=== PATIENT | male | born 1960 | race Caucasian/White ===

== ENCOUNTER → 2023-07-05 11:01 | Outpatient (REF) | payer OTHER, SELFPAY | LOC: HWRAD 11:01 | PROVIDERS: ATTENDING PHYSICIAN Nurse Practitioner Family | DX: M79.671 Pain in right foot (principal) | CPT/HCPCS: 73630 ==

== ENCOUNTER → 2023-11-13 12:27 | Outpatient (REF) | payer OTHER, SELFPAY ==
[2023-11-13 15:50] LABS: % Basophils 0.8 % (0-2); % Eosinophils 6.9 % (0-6); % Immature Granulocytes 0.2 % (0-0.5); % Lymphocytes 13.9 % (20.5-51.1); % Monocytes 8.3 % (1.7-9.3); % Neutrophils 69.9 % (42.2-75.2); Absolute Basophils 0.1 10^3/uL (0-0.2); Absolute Eosinophils 0.7 10^3/uL (0-0.7); Absolute Lymphocytes 1.4 10^3/uL (1.2-3.4); Absolute Monocytes 0.8 10^3/uL (0.1-0.6); Absolute Neutrophils 6.8 10^3/uL (1.4-6.5); Hematocrit 37.7 % (39.0-52.0); Hemoglobin 12.9 g/dL (13.0-18.0); Mean Corp Hgb Conc. 34.2 g/dL (33.0-37.0); Mean Corpuscular Hgb 31.7 pg (27.0-31.0); Mean Corpuscular Volume 92.6 fL (80.0-94.0); Mean Platelet Volume 10.6 fL (7.4-10.4); Nucleated Red Blood Cells % 0 % (-); Platelet Count 259 10^3/uL (130-400); Red Blood Cell Count 4.07 10^6/uL (4.70-6.10); Red Cell Dist. Width 12.2 % (11.5-14.5); White Blood Cell Count 9.8 10^3/uL (4.8-10.8)
[2023-11-13 16:11] LABS: Uric Acid 5.3 mg/dl (3.5-8.5)
== END ==
LOC: HWRAD 12:27
PROVIDERS: ATTENDING PHYSICIAN Family Medicine
DX: M79.672 Pain in left foot (principal)
CPT/HCPCS: 36415; 73630; 84550; 85025

== ENCOUNTER 2023-11-26 10:51 | Emergency (ER) | payer OTHER, SELFPAY ==
[2023-11-26 10:54] VITALS: BP 145/64
--- NOTE | 2023-11-26 12:25 | ED.GENMED ---
History of Present Illness
General
Chief Complaint: Musculo-Skeletal Complaint
Source: patient
Exam Limitations: none
Time Seen by Provider: 11/26/23 12:03
Nursing documentation reviewed up to this point in time: agreed with
History of Present Illness
History of Present Illness:
Patient with history of gout on Uloric, presents to ED secondary to increased left foot swelling with pain and redness over the past 3 weeks. Patient was seen by his primary care physician 1 week ago when he had pain on the lateral aspect of his
left foot and was treated with Z-Deion, with possible infection, without improvement symptoms. Since then, his left great toe pain has worsened with redness, similar to his previous episode of gouty attack. Denies fever or chills. Denies nausea or
vomiting. Denies trauma. Denies recent change in medications or diet.
Past History
Past History
ED Past Medical History: Other (Kidney stone) and Other (Gout)
ED Past Surgical History: None
Social History
Tobacco: Non-smoker
Alcohol: Occasional
Personal:
Living: with family
Family History
Family History: Negative Diabetes, Hypertension, Early CAD, Asthma or Cancer
Review of Systems
Review of Systems
Allergies reviewed?: Yes
All Other Systems: ROS reviewed and negative except as documented in HPI and ROS
Constitutional: Reports no symptoms
ABD/GI: Reports no symptoms
Musculoskeletal: Reports other (Foot pain with swelling)
Skin: Reports other (Toe redness with swelling)
Neurological: Reports no symptoms
Phy Exam
Physical Exam
Physical Exam:
Physical Exam
General: mild painful distress, not acutely ill. afebrile
Head: nc/at. eomi
Neck: supple. normal range of motion.
Neuro: alert and oriented. no focal neurological deficits
Skin: left 1st phalanx with erythema/swelling/tenderness to palpation
Psychiatric: well kept. interactive and cooperative
Extremities: no edema. no calf tenderness.
Course
Orders/Labs/Results
Orders:
Orders
11/26/23 12:25
Oxycodone/Acetaminophen [Percocet 5/325] 1 tablet PO NOW STA
Prednisone [Deltasone] 50 mg PO NOW STA
11/26/23 12:30
Indomethacin [Indocin] 50 mg PO NOW STA
Vital Signs
Initial and Last Documented VS:
Initial Vital Signs
Temp Pulse Resp BP Pulse Ox
98.2 F 87 18 145/64 97
11/26/23 10:54 11/26/23 10:54 11/26/23 10:54 11/26/23 10:54 11/26/23 10:54
Last Documented Vital Signs
Temp Pulse Resp BP Pulse Ox
98.2 F 85 20 129/76 97
11/26/23 10:54 11/26/23 12:55 11/26/23 12:55 11/26/23 12:55 11/26/23 12:55
MDM/Problems Addressed
MDM/Problems Addressed:
History and exam consistent with likely acute gout flare up. Patient will be treated symptomatically, via prednisone, Indocin, and Percocet, with recommendation to follow-up with his field cane scaler for reevaluation. Patient expresses understanding
at time of discharge, to the care of his family.
*Critical Care Note
Total Time (30-74mins, 75-104mins- exclusive of procedures): Not Applicable
ED Attending Note
-
Portions of this chart may have been created with voice recognition software.� Occasional wrong word or��sound alike� substitutions may have occurred due to the inherent limitations of voice recognition software.
Discharge Plan
Departure
Patient Disposition: Home (Routine Discharge)
Date of Disposition: 11/26/23
Time of Disposition: 12:31
Patient with high blood pressure during this ER visit?: Yes
Condition: Good
Discharge Problem:
Gout attack
Instructions: Gout ED
Prescriptions:
New
oxycodone-acetaminophen [Percocet] 5-325 mg Tablet
1 tab PO Q6HPRN PRN (Reason: pain) Qty: 12 0RF
prednisone 50 mg Tablet
50 mg PO DAILY Qty: 3 0RF
indomethacin 25 mg capsule
25 mg PO TID PRN (Reason: pain) Qty: 20 0RF
No Action
naproxen sodium [Aleve] 220 MG tablet
440 mg PO BIDPRN PRN (Reason: pain) Qty: 1 0RF
Stand Alone Forms: Return to Work
Activity Restrictions/Additional Instructions:
As discussed, please follow-up with your field cane scaler for reevaluation, including discussion regarding potential discontinuation of your medications, if indicated. Your prescriptions have been sent electronically to [facility] pharmacy in
[place].
Interventions
Interventions:
*Risk Screen - Suicide Last Done: 11/26/23 12:30
*General Assessment Last Done: 11/26/23 12:30
*Neglect/Abuse Screening Last Done: 11/26/23 12:30
*Nursing Disposition Last Done: 11/26/23 12:55
ED-Musculoskeletal Assessment Last Done: 11/26/23 12:30
Discharge Date and Time
Discharge Date/Time: 11/26/23 12:57
Print Language: GAMBIAN
[2023-11-26] MEDS: DELTASONE 50 MG PO (12:41)
[2023-11-26] MEDS: PERCOCET 5/325 1 TABLET PO (12:41)
[2023-11-26] MEDS: INDOCIN 50 MG PO (12:43)
[2023-11-26 12:55] VITALS: BP 129/76
== END 2023-11-26 12:57 | disposition home or self-care (01) ==
LOC: EMR 10:51
PROVIDERS: EMERGENCY PHYSICIAN Emergency Medicine; FAMILY PHYSICIAN Family Medicine
DX: M79.675 Pain in left toe(s) (principal); M79.89 Other specified soft tissue disorders; M10.9 Gout, unspecified; R03.0 Elevated blood-pressure reading, without diagnosis of hypertension; Z87.442 Personal history of urinary calculi; Z88.8 Allergy status to other drugs, medicaments and biological substances
CPT/HCPCS: 99283

== ENCOUNTER → 2024-05-12 11:20 | Outpatient (REF) | payer OTHER, SELFPAY | LOC: HWRAD 11:20 | PROVIDERS: ATTENDING PHYSICIAN Nurse Practitioner Family | DX: M54.2 Cervicalgia (principal); M25.511 Pain in right shoulder; M25.512 Pain in left shoulder; M25.551 Pain in right hip | CPT/HCPCS: 72050; 73030; 73502 ==

== ENCOUNTER → 2024-05-13 08:43 | Outpatient (REF) | payer OTHER, SELFPAY | LOC: HWRAD 08:43 | PROVIDERS: ATTENDING PHYSICIAN Nurse Practitioner Family; FAMILY PHYSICIAN Family Medicine | DX: J34.89 Other specified disorders of nose and nasal sinuses (principal) | CPT/HCPCS: 70486 ==

== ENCOUNTER → 2024-06-02 08:07 | Outpatient (REF) | payer OTHER, SELFPAY | LOC: RAD 08:07 | PROVIDERS: ATTENDING PHYSICIAN Nurse Practitioner Family; FAMILY PHYSICIAN Family Medicine | DX: I77.9 Disorder of arteries and arterioles, unspecified (principal) | CPT/HCPCS: 93880 ==